=== PATIENT | female | born 1970 | race Caucasian/White ===

== ENCOUNTER 2018-02-09 11:38 | Emergency (ER) | payer OTHER ==
[2018-02-09 12:10] VITALS: BP 155/100; PULSE 66; RESP 18; TEMP 97.5; O2SAT 99
== END 2018-02-09 13:40 | disposition home or self-care (01) | DRG 914 ==
LOC: ED 11:38
DX: S09.90XA Unspecified injury of head, initial encounter (principal)
CPT/HCPCS: 70450; 73502; 73590; 99282; G0390

== ENCOUNTER 2018-02-10 07:41 | Emergency (ER) | payer OTHER ==
[2018-02-10 08:30] VITALS: RESP 16; TEMP 98
[2018-02-10] MEDS ORDERED: METOCLOPRAMIDE HYDROCHLORIDE 5 MG/ML SOL IV ONE (08:35)
[2018-02-10] MEDS ORDERED: KETOROLAC TROMETHAMINE 30 MG/ML SOL IV ONE (08:35)
[2018-02-10] MEDS ORDERED: METOCLOPRAMIDE HYDROCHLORIDE 5 MG/ML SOL ONE (08:44)
[2018-02-10] MEDS ORDERED: KETOROLAC TROMETHAMINE 30 MG/ML SOL ONE (08:44)
[2018-02-10] MEDS ORDERED: SODIUM CHLORIDE 0.9% FLUSH 10 ML SOL IV PRN (08:44)
[2018-02-10 10:32] VITALS: BP 128/76; PULSE 74; O2SAT 98
== END 2018-02-10 10:22 | disposition home or self-care (01) | DRG 103 ==
LOC: ED 07:41
DX: G43.009 Migraine without aura, not intractable, without status migrainosus (principal)
CPT/HCPCS: 96374; 96375; 99283; 99284; J1885; J2765